=== PATIENT | female | born 1975 | race Asian ===

== ENCOUNTER 2017-02-17 05:11 | Emergency (ER) | payer OTHER, SELFPAY ==
[2017-02-17] MEDS ORDERED: Alum Hydrox/Mag Hydrox/Simeth 30 ML, Lidocaine 2% 15 ML PO ONE ×2 (05:49)
[2017-02-17] MEDS ORDERED: HYDROmorphone 1 MG/ML Syringe IVPUSH ONE (06:31)
[2017-02-17] MEDS ORDERED: Ondansetron 4 MG/2 ML SDV IVPUSH ONE ×2 (06:31→08:48)
--- NOTE | 2017-02-17 06:39 | EDM.PDOC ---
<Amandeep Loyola - Last Filed: 02/17/17 07:48> ED HPI GENERAL MEDICAL PROBLEM - General Chief Complaint: Abdominal Pain Stated Complaint: ABDOMINAL PAIN Time Seen by Provider: 02/17/17 05:48 Source of Information: Reports: Patient History Limitations: Reports: No Limitations - History of Present Illness INITIAL COMMENTS - FREE TEXT/NARRATIVE: This patient complains of epigastric pain. It's been going on since November. It seems to come and go. Initially famotidine helped but does not seem to be helping now. She's tried taking some Tums and generally just takes 2 tablets at once but it doesn't work. She said this pain is worse when she has some stress and she burps a lot. It's a lot worse at night when she is reclining. She has no history of any kind of GI problems. There is no vomiting blood there is no change in her stools such as melena. 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: - Infectious Disease History Infectious Disease History: Reports: Chicken Pox, Measles Social & Family History - Tobacco Use Smoking Status *Q: Current Every Day Smoker Years of Tobacco use: 18 Packs/Tins Daily: 0.3 - Caffeine Use Caffeine Use: Reports: Coffee - Recreational Drug Use Recreational Drug Use: No ED ROS GENERAL - Review of Systems Review Of Systems: See Below Constitutional: Reports: No Symptoms HEENT: Reports: No Symptoms Respiratory: Reports: No Symptoms Cardiovascular: Reports: No Symptoms Endocrine: Reports: No Symptoms GI/Abdominal: Reports: Abdominal Pain : Reports: No Symptoms ED EXAM, GI/ABD - Physical Exam Exam: See Below Exam Limited By: No Limitations General Appearance: Alert, WD/WN, Moderate Distress Eyes: Bilateral: Normal Appearance Throat/Mouth: Normal Inspection Respiratory/Chest: Lungs Clear Cardiovascular: Regular Rate, Rhythm, No Murmur GI/Abdominal Exam: Normal Bowel Sounds, Soft, Tender (There is epigastric tenderness and tenderness directly over the gallbladder with positive Davis sign.) Back Exam: Normal Inspection Extremities: Normal Inspection Neurological: Alert, Oriented Psychiatric: Normal Affect Skin Exam: Warm, Dry Course - Vital Signs Last Recorded V/S: Last Vital Signs Temp 97.2 F 02/17/17 05:33 Pulse 70 02/17/17 08:32 Resp 16 02/17/17 08:32 BP 109/68 02/17/17 08:32 Pulse Ox 97 02/17/17 08:32 - Orders/Labs/Meds Orders: Active Orders 24 hr Category Date Time Status CULTURE BLOOD [BC] Urgent Lab 02/17/17 07:50 Received CULTURE BLOOD [BC] Urgent Lab 02/17/17 08:00 Received Piperacillin/Tazobactam [Zosyn] 3.375 gm Med 02/17/17 08:00 Active Sodium Chloride 0.9% [Normal Saline] 50 ml IV Q6H Blood Culture x2 Reflex Set [OM.PC] Urgent Oth 02/17/17 07:50 Ordered Medication Orders Piperacillin Sod/Tazobactam (Sod 3.375 gm/ Sodium Chloride) 50 mls @ 100 mls/ hr IV Q6H CAROLEE Last Admin: 02/17/17 08:18 Dose: 100 mls/hr Labs: Laboratory Tests 02/17/17 02/17/17 02/17/17 Range/Units 06:09 06:09 06:09 WBC 12.2 H (4.5-11.0) K/uL RBC 4.47 (3.30-5.50) M/uL Hgb 14.3 (12.0-15.0) g/dL Hct 41.1 (36.0-48.0) % MCV 92 (80-98) fL MCH 32 H (27-31) pg MCHC 35 (32-36) % Plt Count 396 (150-400) K/uL Neut % (Auto) 80 H (36-66) % Lymph % (Auto) 13 L (24-44) % [place] % (Auto) 7 H (2-6) % Eos % (Auto) 0 L (2-4) % Baso % (Auto) 0 (0-1) % Sodium 142 (140-148) mmol/L Potassium 3.8 (3.6-5.2) mmol/L Chloride 106 (100-108) mmol/L Carbon Dioxide 22 (21-32) mmol/L Anion Gap 14.5 H (5.0-14.0) mmol/L BUN 10 (7-18) mg/dL Creatinine 0.9 (0.6-1.0) mg/dL Est Cr Clr Drug Dosing 65.06 mL/min Estimated GFR (MDRD) > 60 (>60) Glucose 111 H (74-106) mg/dL Calcium 8.9 (8.5-10.1) mg/dL Total Bilirubin 0.9 (0.2-1.0) mg/dL AST 553 H (15-37) U/L ALT 532 H (12-78) U/L Alkaline Phosphatase 121 H (46-116) U/L Total Protein 7.5 (6.4-8.2) g/dL Albumin 4.1 (3.4-5.0) g/dL Globulin 3.4 (2.3-3.5) g/dL Albumin/Globulin Ratio 1.2 (1.2-2.2) Amylase 36 (25-115) U/L Lipase 201 (73-393) U/L Meds: Medications Generic Name Dose Route Start Last Admin Trade Name Freq PRN Reason Stop Dose Admin Piperacillin Sod/Tazobactam 50 mls @ 100 mls/hr 02/17/17 08:00 02/17/17 08:18 Sod 3.375 gm/ Sodium Chloride IV 100 mls/hr Q6H CAROLEE Administration Discontinued Medications Generic Name Dose Route Start Last Admin Trade Name Freq PRN Reason Stop Dose Admin Al Hydroxide/Mg Hydroxide 30 0 ml 02/17/17 05:49 02/17/17 05:56 ml/ Lidocaine HCl 15 ml PO 02/17/17 05:50 30 ml ONETIME ONE Administration Hydromorphone HCl 1 mg 02/17/17 06:31 02/17/17 06:40 Dilaudid IVPUSH 02/17/17 06:32 1 mg ONETIME ONE Administration Metronidazole 500 mg/ Premix 100 mls @ 100 mls/hr 02/17/17 07:49 02/17/17 08: 47 IV 02/17/17 08:48 100 mls/hr ONETIME ONE Administration Ketorolac Tromethamine 30 mg 02/17/17 06:47 02/17/17 06:56 Toradol IVPUSH 02/17/17 06:48 30 mg ONETIME ONE Administration Ondansetron HCl 4 mg 02/17/17 06:31 02/17/17 06:39 Zofran IVPUSH 02/17/17 06:32 4 mg ONETIME ONE Administration Ondansetron HCl 4 mg 02/17/17 08:48 Zofran IVPUSH 02/17/17 08:49 ONETIME ONE Prochlorperazine Edisylate 5 mg 02/17/17 08:50 02/17/17 08:56 Compazine IVPUSH 02/17/17 08:51 5 mg ONETIME ONE Administration - Re-Assessments/Exams Free Text/Narrative Re-Assessment/Exam: 02/17/17 06:38 The patient was given a GI cocktail of 30 mL Maalox +15 of lidocaine. She said this did not help at all. An IV was then established she was given Dilaudid 1 mg and Zofran 4 mg IV. Her chemistries are still pending and when those are ready will make a decision about imaging. 02/17/17 07:13 Liver functions transaminases and alkaline phosphatase are elevated. Ultrasound is pending. She received initially Toradol 30 mg IV. 02/17/17 07:[address] Baker Hospitalist at [facility] in [place]. He accepted the patient but requested we start IV Zosyn and Flagyl and do 2 sets blood cultures. Care turned over to Dr Officer at this time. Departure - Departure Disposition: DC/Tfer to [facility] 02 Clinical Impression: Common bile duct dilatation - Discharge Information Referrals: Dayana Miner CNM [Primary Care Provider] - Forms: ED Department Discharge - My Orders Last 24 Hours: My Active Orders 02/17/17 07:50 CULTURE BLOOD [BC] Urgent Blood Culture x2 Reflex Set [OM.PC] Urgent 02/17/17 08:00 CULTURE BLOOD [BC] Urgent Piperacillin/Tazobactam [Zosyn] 3.375 gm Sodium Chloride 0.9% [Normal Saline] 50 ml IV Q6H - Assessment/Plan Last 24 Hours: My Active Orders 02/17/17 07:50 CULTURE BLOOD [BC] Urgent Blood Culture x2 Reflex Set [OM.PC] Urgent 02/17/17 08:00 CULTURE BLOOD [BC] Urgent Piperacillin/Tazobactam [Zosyn] 3.375 gm Sodium Chloride 0.9% [Normal Saline] 50 ml IV Q6H <OfficerTorres - Last Filed: 02/17/17 09:55> Departure - Departure Time of Disposition: 09:55 Condition: Good - Assessment/Plan Plan: Assessment Acuity = acute Site and laterality = right upper quadrant gallbladder pain complicated patient with known history of gastroesophageal reflux disease Etiology = suspicious for gallbladder duct stone Manifestations = nausea Location of injury = Home Lab values = WBC elevated at 12.2 consistent with leukocytosis, AST elevated at 553 ALTs elevated at 532 consistent with elevated liver enzymes ultrasound shows common bile duct dilated to 6 mm a thickened gallbladder wall at the upper limits of normal 2 gallstones present official read radiology is pending Plan Dr. Baker hospitalist neon sign maker at [facility], kindly accepted the patient in transport she will be transported via private vehicle plan for direct admission she was given 3.375 mg of Zosyn, 500 mg of Flagyl, blood cultures were drawn prior to initiation of antibiotics
[2017-02-17] MEDS ORDERED: Ketorolac 30 MG/ML SDV IVPUSH ONE (06:47)
[2017-02-17] MEDS ORDERED: metroNIDAZOLE/Normal Saline 500 MG in Premix Bag 1 BAG IV ONE (07:49)
[2017-02-17] MEDS ORDERED: Piperacillin/Tazobactam 3.375 GM in Sodium Chloride 0.9% 50 ML IV SCH (08:00)
[2017-02-17 08:33] VITALS: BP 109/68
[2017-02-17] MEDS ORDERED: Prochlorperazine 10 MG/2 ML SDV IVPUSH ONE (08:50)
--- NOTE | 2017-02-17 09:07 | US ---
Abdomen Ltd INDICATION: RUQ pain, increased LFT's COMPARISON: None FINDINGS: 3.5 cm cyst seen in the liver. Liver otherwise unremarkable. Small gallstones. No gallbladder wall thickening. No sonographic Davis sign though ultrasound note i ndicates patient was given pain meds. Common bile duct upper limits of normal at 7 mm. Abdominal aorta and inferior vena cava are unremarkable where visualized. Visualized portions of the pancreas are unremarkable. Right kidney unremarkable. No calculi or hydronephrosis. No ascites seen in the right upper quadrant. IMPRESSION: 1. Small gallstones. 2. 3.5 cm hepatic cyst.
== END 2017-02-17 10:08 ==
LOC: JP.ED 05:11
DX: K83.8 Other specified diseases of biliary tract (principal); K21.9 Gastro-esophageal reflux disease without esophagitis; F17.210 Nicotine dependence, cigarettes, uncomplicated; Z79.899 Other long term (current) drug therapy
CPT/HCPCS: 36415; 76705; 80053; 82150; 83690; 85025; 87040; 96365; 96367; 96375; 96376; 99285; A9270; J0780; J1170; J1885; J2405; J2543; J7050

== ENCOUNTER 2019-02-18 01:59 | Emergency (ER) | payer SELFPAY ==
[2019-02-18] MEDS ORDERED: Sodium Chloride 0.9% 10 ML Syringe FLUSH PRN ×2 (02:35)
--- NOTE | 2019-02-18 02:43 | EDM.PDOCBH ---
<OfficerTorres - Last Filed: 02/18/19 02:39> ED HPI GENERAL MEDICAL PROBLEM - General Chief Complaint: Behavioral/Psych Stated Complaint: MEDICAL VIA [facility]TH Time Seen by Provider: 02/18/19 02:34 Source of Information: Reports: Patient, EMS, RN Notes Reviewed History Limitations: Reports: No Limitations - History of Present Illness INITIAL COMMENTS - FREE TEXT/NARRATIVE: 43-year-old female presents emergency department today following an intentional overdose of medications approximately 12:30 this morning she took 4 tramadol 50 mg for total of 200 mg, 4 hydrocodone 5/325 for total of 20 mg hydrocodone with 1300 mg acetaminophen and 10 mg Flexeril. This was intended she wanted to harm herself because she is currently fighting with her Shoulder Pain Score (Numeric/FACES): 0 - Related Data Allergies Allergy/AdvReac Type Severity Reaction Status Date / Time No Known Allergies Allergy Verified 02/18/19 02:09 Home Meds: Home Meds Famotidine [Pepcid] 20 mg PO DAILY 12/17/18 [History] Ibuprofen [Advil] 200 mg PO DAILY 12/17/18 [History] Naproxen Sodium [Aleve] 220 mg PO DAILY 12/17/18 [History] Cyclobenzaprine [Flexeril] 10 mg PO QID PRN #28 tablet 12/25/18 [Rx] Hydrocodone/Acetaminophen [[place] 5-325 Tablet] 1 each PO Q6HR PRN #28 tablet 01/07 [Rx] traMADol [Ultram] 50 mg PO Q6H PRN 02/18/19 [History] Past Medical History Gastrointestinal History: Reports: GERD 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 C-5,6 spine injury - Infectious Disease History Infectious Disease History: Reports: Chicken Pox, Measles - Past Surgical History GI Surgical History: Reports: Cholecystectomy Social & Family History - Tobacco Use Smoking Status *Q: Current Every Day Smoker Years of Tobacco use: 20 Packs/Tins Daily: 0.5 - Caffeine Use Caffeine Use: Reports: Coffee, Soda - Recreational Drug Use Recreational Drug Use: No ED ROS GENERAL - Review of Systems Review Of Systems: See Below Constitutional: Reports: No Symptoms HEENT: Reports: No Symptoms Respiratory: Reports: No Symptoms Cardiovascular: Reports: No Symptoms GI/Abdominal: Reports: No Symptoms : Reports: No Symptoms Musculoskeletal: Reports: Muscle Pain Skin: Reports: No Symptoms Neurological: Reports: No Symptoms Psychiatric: Reports: Suicidal Ideation ED EXAM, BEHAVIORAL HEALTH - Physical Exam Exam: See Below Text/Narrative:: General: Female, not in any distress, alert and oriented x3 HEENT: head is atraumatic normocephalic, eyes pupils equal round reactive to light, sclera clear no conjunctivitis appreciated. Ears tympanic membranes clear and lara landmarks and light reflex are present bilaterally canals are clear. Nose no septal deviation, nares are clear, no blood present. Mouth mucosa is moist and pink no erythema or exudate noted in soft palate, tongue is midline uvula is midline, dentition is intact. Neck: Supple no thyromegaly no tracheal deviation. Nodes: Cervical nodes subclavicular nodes nontender no palpable lymphadenopathy noted. Lungs: clear to auscultation bilaterally with symmetrical respirations, no adventitious noise appreciated. CV: Regular rate and rhythm S1 and S2 appreciated no murmurs rubs or gallops noted. Abdomen: Soft, nontender, no palpable masses or organomegaly appreciated, no distention no guarding bowel sounds are present, . Neuro: GCS 15 Skin: Warm and dry, intact Extremities: No lower extremity edema appreciated, Orientated to person place and time, appropriately dressed, well groomed, memory to recent and remote events intact, good attention and concentration, speech is of adequate rate tone and volume, good fund of knowledge, language is appropriate, Mood and affect are euthymic, no pressured thoughts, positive suicidal ideation, denies homicidal ideation, no hallucinations visual or auditory, poor judgment, poor insight COURSE, BEHAVIORAL HEALTH COMP - Course Vital Signs: Last Vital Signs Temp 37.2 C 02/18/19 02:05 Pulse 75 02/18/19 08:00 Resp 15 02/18/19 08:00 BP 113/73 02/18/19 08:00 Pulse Ox 96 02/18/19 08:00 Orders, Labs, Meds: Active Orders 24 hr Category Date Time Status Peripheral IV Care [RC] . DIRECTED Care 02/18/19 02:36 Active Sodium Chloride 0.9% [Saline Flush] Med 02/18/19 02:35 Active 10 ml FLUSH ASDIRECTED PRN Sodium Chloride 0.9% [Saline Flush] Med 02/18/19 02:35 Active 10 ml FLUSH ASDIRECTED PRN Peripheral IV Insertion Adult [OM.PC] Urgent Oth 02/18/19 02:35 Ordered Medication Orders Sodium Chloride (Saline Flush) 10 ml FLUSH ASDIRECTED PRN PRN Reason: Keep Vein Open Last Admin: 02/18/19 02:52 Dose: 10 ml Sodium Chloride (Saline Flush) 10 ml FLUSH ASDIRECTED PRN PRN Reason: Keep Vein Open Laboratory Tests 02/18/19 02/18/19 02/18/19 Range/Units 02:15 02:15 02:15 WBC 15.9 H (4.5-11.0) K/uL RBC 4.83 (3.30-5.50) M/uL Hgb 14.9 (12.0-15.0) g/dL Hct 44.5 (36.0-48.0) % MCV 92 (80-98) fL MCH 31 (27-31) pg MCHC 34 (32-36) % Plt Count 486 H (150-400) K/uL Neut % (Auto) 67 H (36-66) % Lymph % (Auto) 22 L (24-44) % [place] % (Auto) 10 H (2-6) % Eos % (Auto) 1 L (2-4) % Baso % (Auto) 0 (0-1) % Sodium 141 (140-148) mmol/L Potassium 3.8 (3.6-5.2) mmol/L Chloride 104 (100-108) mmol/L Carbon Dioxide 24 (21-32) mmol/L Anion Gap 12.6 (5.0-14.0) mmol/L BUN 10 (7-18) mg/dL Creatinine 0.9 (0.6-1.0) mg/dL Est Cr Clr Drug Dosing 63.75 mL/min Estimated GFR (MDRD) > 60 (>60) Glucose 105 (74-106) mg/dL Lactic Acid (0.4-2.0) mmol/L Calcium 9.1 (8.5-10.1) mg/dL Total Bilirubin 0.3 D (0.2-1.0) mg/dL AST 16 D (15-37) U/L ALT 21 D (12-78) U/L Alkaline Phosphatase 78 (46-116) U/L Creatine Kinase (26-192) U/L Total Protein 8.3 H (6.4-8.2) g/dL Albumin 4.1 (3.4-5.0) g/dL Globulin 4.2 H (2.3-3.5) g/dL Albumin/Globulin Ratio 1.0 L (1.2-2.2) HCG, Qual Negative Urine Color (YELLOW) Urine Appearance (CLEAR) Urine pH (5.0-8.0) Ur Specific Stevenson (1.008-1.030) Urine Protein (NEGATIVE) mg/dL Urine Glucose (UA) (NEGATIVE) mg/dL Urine Ketones (NEGATIVE) mg/dL Urine Occult Blood (NEGATIVE) Urine Nitrite (NEGATIVE) Urine Bilirubin (NEGATIVE) Urine Urobilinogen (0.2-1.0) EU/dL Ur Leukocyte Esterase (NEGATIVE) Urine RBC (0-5) Urine WBC (0-5) Ur Epithelial Cells Amorphous Sediment Urine Bacteria Urine Mucus Salicylates (2.0-20.0) mg/dL Urine Opiates Screen (NEGATIVE) Ur Oxycodone Screen (NEGATIVE) Urine Methadone Screen (NEGATIVE) Ur Propoxyphene Screen (NEGATIVE) Acetaminophen (10.0-30.0) ug/mL Ur Barbiturates Screen (NEGATIVE) Ur Tricyclics Screen (NEGATIVE) Ur Phencyclidine Scrn (NEGATIVE) Ur Amphetamine Screen (NEGATIVE) U Methamphetamines Scrn (NEGATIVE) Urine MDMA Screen (NEGATIVE) U Benzodiazepines Scrn (NEGATIVE) U Cocaine Metab Screen (NEGATIVE) U Marijuana (THC) Screen (NEGATIVE) Ethyl Alcohol mg/dL 02/18/19 02/18/19 02/18/19 Range/Units 02:15 02:15 02:15 WBC (4.5-11.0) K/uL RBC (3.30-5.50) M/uL Hgb (12.0-15.0) g/dL Hct (36.0-48.0) % MCV (80-98) fL MCH (27-31) pg MCHC (32-36) % Plt Count (150-400) K/uL Neut % (Auto) (36-66) % Lymph % (Auto) (24-44) % [place] % (Auto) (2-6) % Eos % (Auto) (2-4) % Baso % (Auto) (0-1) % Sodium (140-148) mmol/L Potassium (3.6-5.2) mmol/L Chloride (100-108) mmol/L Carbon Dioxide (21-32) mmol/L Anion Gap (5.0-14.0) mmol/L BUN (7-18) mg/dL Creatinine (0.6-1.0) mg/dL Est Cr Clr Drug Dosing mL/min Estimated GFR (MDRD) (>60) Glucose (74-106) mg/dL Lactic Acid (0.4-2.0) mmol/L Calcium (8.5-10.1) mg/dL Total Bilirubin (0.2-1.0) mg/dL AST (15-37) U/L ALT (12-78) U/L Alkaline Phosphatase (46-116) U/L Creatine Kinase (26-192) U/L Total Protein (6.4-8.2) g/dL Albumin (3.4-5.0) g/dL Globulin (2.3-3.5) g/dL Albumin/Globulin Ratio (1.2-2.2) HCG, Qual Urine Color (YELLOW) Urine Appearance (CLEAR) Urine pH (5.0-8.0) Ur Specific Stevenson (1.008-1.030) Urine Protein (NEGATIVE) mg/dL Urine Glucose (UA) (NEGATIVE) mg/dL Urine Ketones (NEGATIVE) mg/dL Urine Occult Blood (NEGATIVE) Urine Nitrite (NEGATIVE) Urine Bilirubin (NEGATIVE) Urine Urobilinogen (0.2-1.0) EU/dL Ur Leukocyte Esterase (NEGATIVE) Urine RBC (0-5) Urine WBC (0-5) Ur Epithelial Cells Amorphous Sediment Urine Bacteria Urine Mucus Salicylates 4.1 (2.0-20.0) mg/dL Urine Opiates Screen (NEGATIVE) Ur Oxycodone Screen (NEGATIVE) Urine Methadone Screen (NEGATIVE) Ur Propoxyphene Screen (NEGATIVE) Acetaminophen 0.0 L (10.0-30.0) ug/mL Ur Barbiturates Screen (NEGATIVE) Ur Tricyclics Screen (NEGATIVE) Ur Phencyclidine Scrn (NEGATIVE) Ur Amphetamine Screen (NEGATIVE) U Methamphetamines Scrn (NEGATIVE) Urine MDMA Screen (NEGATIVE) U Benzodiazepines Scrn (NEGATIVE) U Cocaine Metab Screen (NEGATIVE) U Marijuana (THC) Screen (NEGATIVE) Ethyl Alcohol < 3 mg/dL 02/18/19 02/18/19 02/18/19 Range/Units 02:15 02:15 02:45 WBC (4.5-11.0) K/uL RBC (3.30-5.50) M/uL Hgb (12.0-15.0) g/dL Hct (36.0-48.0) % MCV (80-98) fL MCH (27-31) pg MCHC (32-36) % Plt Count (150-400) K/uL Neut % (Auto) (36-66) % Lymph % (Auto) (24-44) % [place] % (Auto) (2-6) % Eos % (Auto) (2-4) % Baso % (Auto) (0-1) % Sodium (140-148) mmol/L Potassium (3.6-5.2) mmol/L Chloride (100-108) mmol/L Carbon Dioxide (21-32) mmol/L Anion Gap (5.0-14.0) mmol/L BUN (7-18) mg/dL Creatinine (0.6-1.0) mg/dL Est Cr Clr Drug Dosing mL/min Estimated GFR (MDRD) (>60) Glucose (74-106) mg/dL Lactic Acid 2.1 H (0.4-2.0) mmol/L Calcium (8.5-10.1) mg/dL Total Bilirubin (0.2-1.0) mg/dL AST (15-37) U/L ALT (12-78) U/L Alkaline Phosphatase (46-116) U/L Creatine Kinase 136 (26-192) U/L Total Protein (6.4-8.2) g/dL Albumin (3.4-5.0) g/dL Globulin (2.3-3.5) g/dL Albumin/Globulin Ratio (1.2-2.2) HCG, Qual Urine Color (YELLOW) Urine Appearance (CLEAR) Urine pH (5.0-8.0) Ur Specific Stevenson (1.008-1.030) Urine Protein (NEGATIVE) mg/dL Urine Glucose (UA) (NEGATIVE) mg/dL Urine Ketones (NEGATIVE) mg/dL Urine Occult Blood (NEGATIVE) Urine Nitrite (NEGATIVE) Urine Bilirubin (NEGATIVE) Urine Urobilinogen (0.2-1.0) EU/dL Ur Leukocyte Esterase (NEGATIVE) Urine RBC (0-5) Urine WBC (0-5) Ur Epithelial Cells Amorphous Sediment Urine Bacteria Urine Mucus Salicylates (2.0-20.0) mg/dL Urine Opiates Screen Presumptive positive H (NEGATIVE) Ur Oxycodone Screen Presumptive positive H (NEGATIVE) Urine Methadone Screen Negative (NEGATIVE) Ur Propoxyphene Screen Negative (NEGATIVE) Acetaminophen (10.0-30.0) ug/mL Ur Barbiturates Screen Negative (NEGATIVE) Ur Tricyclics Screen Presumptive positive H (NEGATIVE) Ur Phencyclidine Scrn Negative (NEGATIVE) Ur Amphetamine Screen Negative (NEGATIVE) U Methamphetamines Scrn Negative (NEGATIVE) Urine MDMA Screen Negative (NEGATIVE) U Benzodiazepines Scrn Negative (NEGATIVE) U Cocaine Metab Screen Negative (NEGATIVE) U Marijuana (THC) Screen Negative (NEGATIVE) Ethyl Alcohol mg/dL 02/18/19 02/18/19 02/18/19 Range/Units 02:51 04:25 06:40 WBC (4.5-11.0) K/uL RBC (3.30-5.50) M/uL Hgb (12.0-15.0) g/dL Hct (36.0-48.0) % MCV (80-98) fL MCH (27-31) pg MCHC (32-36) % Plt Count (150-400) K/uL Neut % (Auto) (36-66) % Lymph % (Auto) (24-44) % [place] % (Auto) (2-6) % Eos % (Auto) (2-4) % Baso % (Auto) (0-1) % Sodium 139 L 139 L (140-148) mmol/L Potassium 3.9 4.1 (3.6-5.2) mmol/L Chloride 105 105 (100-108) mmol/L Carbon Dioxide 23 24 (21-32) mmol/L Anion Gap 14.9 H 14.1 H (5.0-14.0) mmol/L BUN 11 11 (7-18) mg/dL Creatinine 0.8 0.9 (0.6-1.0) mg/dL Est Cr Clr Drug Dosing 71.71 63.75 mL/min Estimated GFR (MDRD) > 60 > 60 (>60) Glucose 109 H 104 (74-106) mg/dL Lactic Acid (0.4-2.0) mmol/L Calcium 8.4 L 8.5 (8.5-10.1) mg/dL Total Bilirubin 0.3 0.3 (0.2-1.0) mg/dL AST 14 L 12 L (15-37) U/L ALT 19 18 (12-78) U/L Alkaline Phosphatase 68 69 (46-116) U/L Creatine Kinase (26-192) U/L Total Protein 7.1 7.1 (6.4-8.2) g/dL Albumin 3.5 3.4 (3.4-5.0) g/dL Globulin 3.6 H 3.7 H (2.3-3.5) g/dL Albumin/Globulin Ratio 1.0 L 0.9 L (1.2-2.2) HCG, Qual Urine Color Yellow (YELLOW) Urine Appearance Slightly cloudy A (CLEAR) Urine pH 5.5 (5.0-8.0) Ur Specific Stevenson 1.030 (1.008-1.030) Urine Protein Negative (NEGATIVE) mg/dL Urine Glucose (UA) Normal (NEGATIVE) mg/dL Urine Ketones Negative (NEGATIVE) mg/dL Urine Occult Blood Negative (NEGATIVE) Urine Nitrite Negative (NEGATIVE) Urine Bilirubin Negative (NEGATIVE) Urine Urobilinogen 0.2 (0.2-1.0) EU/dL Ur Leukocyte Esterase Negative (NEGATIVE) Urine RBC 0-5 (0-5) Urine WBC 0-5 (0-5) Ur Epithelial Cells Moderate Amorphous Sediment Not seen Urine Bacteria Moderate Urine Mucus Moderate Salicylates (2.0-20.0) mg/dL Urine Opiates Screen (NEGATIVE) Ur Oxycodone Screen (NEGATIVE) Urine Methadone Screen (NEGATIVE) Ur Propoxyphene Screen (NEGATIVE) Acetaminophen 3.3 L 0.2 L (10.0-30.0) ug/mL Ur Barbiturates Screen (NEGATIVE) Ur Tricyclics Screen (NEGATIVE) Ur Phencyclidine Scrn (NEGATIVE) Ur Amphetamine Screen (NEGATIVE) U Methamphetamines Scrn (NEGATIVE) Urine MDMA Screen (NEGATIVE) U Benzodiazepines Scrn (NEGATIVE) U Cocaine Metab Screen (NEGATIVE) U Marijuana (THC) Screen (NEGATIVE) Ethyl Alcohol mg/dL Medications Generic Name Dose Route Start Last Admin Trade Name Freq PRN Reason Stop Dose Admin Sodium Chloride 10 ml 02/18/19 02:35 02/18/19 02:52 Saline Flush FLUSH 10 ml ASDIRECTED PRN Administration Keep Vein Open Sodium Chloride 10 ml 02/18/19 02:35 Saline Flush FLUSH ASDIRECTED PRN Keep Vein Open Departure - Departure Disposition: Home, Self-Care 01 Clinical Impression: Situational depression Suicide gesture Qualifiers: Encounter type: initial encounter Qualified Code(s): X83.8XXA - Intentional self-harm by other specified means, initial encounter - Discharge Information Referrals: PCP,None [Primary Care Provider] - Forms: ED Department Discharge Additional Instructions: Return as needed. Continue any current medications. Follow through with plan as outlined by today's Crisis consultation. <Shaan German G - Last Filed: 02/18/19 11:01> COURSE, BEHAVIORAL HEALTH COMP - Course Re-Assessment/Re-Exam Time: 10:59 Discharge vs Psych Eval/Treatment:: 02/18/19 10:59 Crisis met with patient, feels safe to discharge with a safety plan. Departure - Departure Time of Disposition: 11:05 Condition: Fair - Discharge Information *PRESCRIPTION DRUG MONITORING PROGRAM REVIEWED*: No *COPY OF PRESCRIPTION DRUG MONITORING REPORT IN PATIENT GIOVANNA: No
[2019-02-18 04:40] LABS: ACETAMINOPHEN 3.3 ug/mL (10.0-30.0)
[2019-02-18 07:08] LABS: ACETAMINOPHEN 0.2 ug/mL (10.0-30.0)
[2019-02-18 08:49] VITALS: BP 113/73; PULSE 75
== END 2019-02-18 11:15 | disposition home or self-care (01) ==
LOC: JP.ED 01:59
DX: T40.4X2A Poisoning by other synthetic narcotics, intentional self-harm, initial encounter (principal); T40.2X2A Poisoning by other opioids, intentional self-harm, initial encounter; T39.1X2A Poisoning by 4-Aminophenol derivatives, intentional self-harm, initial encounter; T48.1X2A Poisoning by skeletal muscle relaxants [neuromuscular blocking agents], intentional self-harm, initial encounter; F32.9 Major depressive disorder, single episode, unspecified; K21.9 Gastro-esophageal reflux disease without esophagitis; F17.210 Nicotine dependence, cigarettes, uncomplicated; Z79.899 Other long term (current) drug therapy
CPT/HCPCS: 36415; 80053; 80305-QW; 81001; 82550; 83605; 84703; 85025; 99285; G0480

== ENCOUNTER 2019-04-16 13:08 | Emergency (ER) | payer OTHER ==
[2019-04-16 13:22] VITALS: BP 139/71; PULSE 119
--- NOTE | 2019-04-16 14:04 | EDM.PDOC ---
ED HPI GENERAL MEDICAL PROBLEM - General Chief Complaint: Back Pain or Injury Stated Complaint: BACK PAIN/INJURY Time Seen by Provider: 04/16/19 13:40 Source of Information: Reports: Patient History Limitations: Reports: No Limitations - History of Present Illness INITIAL COMMENTS - FREE TEXT/NARRATIVE: 43-year-old female who is currently being treated for right C6 cervical radiculopathy, has recently decreased her work restrictions but is still not supposed to be doing any lifting. 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 She had no symptoms or pain initially, but when she was sitting later it started to hurt and it's been hurting for the last 3 days. Some radiation of pain into the right buttock, some discomfort with ambulation but the pain is mostly localized to the right SI and lower paralumbar area. No specific trauma such as falling. Onset: Gradual Duration: Day(s): (4 days) Location: Reports: Back Worsens with: Reports: Other (Returning to the right, bearing weight and ambulating), Movement Associated Symptoms: Denies: Confusion, Fever/Chills, Malaise, Weakness Lower Back Pain Score (Numeric/FACES): 7 - Related Data Allergies Allergy/AdvReac Type Severity Reaction Status Date / Time No Known Allergies Allergy Verified 04/16/19 13:38 Home Meds: Home Meds Ibuprofen [Advil] 800 mg PO Q6H PRN 12/17/18 [History] Naproxen Sodium [Aleve] 220 mg PO Q12H PRN 12/17/18 [History] Cyclobenzaprine [Flexeril] 10 mg PO QID PRN #28 tablet 12/25/18 [Rx] buPROPion HCl [Bupropion Xl] 150 mg PO DAILY 04/16/19 [History] medroxyPROGESTERone Acetate [Depo-Provera] 150 mg IM .[id number] 04/16/19 [History ] Past Medical History Gastrointestinal History: Reports: [employer] History: Reports: Musculoskeletal History: Reports: Other (See Below) Other Musculoskeletal History: R shoulder injury 12/01/18. C-5,6 spine injury Endocrine/Metabolic History: Reports: Other (See Below) Other Endocrine/Metabolic History: thyroid biopsy scheduled - Infectious Disease History Infectious Disease History: Reports: Chicken Pox, Measles, Mumps - Past Surgical History GI Surgical History: Reports: Cholecystectomy Social & Family History - Tobacco Use Smoking Status *Q: Current Every Day Smoker Years of Tobacco use: 20 Packs/Tins Daily: 0.2 Used Tobacco, but Quit: No Second Hand Smoke Exposure: Yes - Caffeine Use Caffeine Use: Reports: Coffee, Tea - Alcohol Use Days Per Week of Alcohol Use: 0 - Recreational Drug Use Recreational Drug Use: No ED ROS GENERAL - Review of Systems Review Of Systems: See Below Constitutional: Denies: Fever, Chills Respiratory: Denies: Shortness of Breath Cardiovascular: Denies: Chest Pain GI/Abdominal: Denies: Abdominal Pain, Nausea, Vomiting Musculoskeletal: Reports: Shoulder Pain, Arm Pain (Right-sided), Back Pain Neurological: Denies: Paresthesia, Weakness ED EXAM,LOWER BACK PAIN/INJURY - Physical Exam Exam: See Below Exam Limited By: No Limitations General Appearance: Alert, No Apparent Distress Head: Atraumatic Respiratory/Chest: No Respiratory Distress Cardiovascular: Normal Peripheral Pulses Back Exam: Paraspinal Tenderness (Right-sided, L3-S1). No: CVA Tenderness (R), CVA Tenderness (L), Vertebral Tenderness Extremities: Other (No significant pain with internal or external rotation of the right hip, no straight leg raising radiculopathy. Dorsi and plantar flexion of both feet are basically symmetric.) Course - Vital Signs Last Recorded V/S: Last Vital Signs Temp 98.8 F 04/16/19 13:33 Pulse 119 H 04/16/19 13:33 Resp 16 04/16/19 13:33 BP 139/71 04/16/19 13:33 Pulse Ox 97 04/16/19 13:33 - Orders/Labs/Meds Meds: Medications Discontinued Medications Generic Name Dose Route Start Last Admin Trade Name Freq PRN Reason Stop Dose Admin Ketorolac Tromethamine 60 mg 04/16/19 14:13 04/16/19 14:24 Toradol IM 04/16/19 14:14 60 mg ONETIME ONE Administration - Re-Assessments/Exams Free Text/Narrative Re-Assessment/Exam: 04/16/19 14:06 Because this is a work related injury and she is likely following with orthopedics a lumbar spine x-ray was obtained. 04/16/19 14:17 Some slight lack of lumbar curvature but otherwise normal. Patient was given 60 mg of IM Toradol and encouraged to try to increase activity as tolerated and recheck next week if not improving satisfactorily. Departure - Departure Time of Disposition: 14:34 Disposition: Home, Self-Care 01 Clinical Impression: Low back strain Qualifiers: Encounter type: initial encounter Qualified Code(s): S39.012A - Strain of muscle, fascia and tendon of lower back, initial encounter - Discharge Information Instructions: Low Back Strain Referrals: Dayana Miner CNM [Primary Care Provider] - Forms: ED Department Discharge Care Plan Goals: Try to increase activity as tolerated, and consider rechecking next week if not improving satisfactorily. Return sooner if worsening such as incontinence, numbness or significant weakness in your right leg, or other concerns.
[2019-04-16] MEDS ORDERED: Ketorolac 60 MG/2 ML SDV IM ONE (14:13)
--- NOTE | 2019-04-16 14:20 | CRLCR ---
INDICATION: Low back pain TECHNIQUE: Lumbar spine 3 view. COMPARISON: None. FINDINGS: Bones: Alignment is normal. No fractures or significant bone lesions. Joints: Mild multilevel degenerative facet changes. Minimal multilevel degenerative disc changes. Soft tissues: Surgical clips in the right upper quadrant. IMPRESSION: No acute abnormality. Mild degenerative facet and disc changes. Dictated by Arlene Champion MD @ Apr 16 2019 2:18PM Signed by Dr. Arlene Champion @ Apr 16 2019 2:18PM
== END 2019-04-16 14:34 | disposition home or self-care (01) ==
LOC: JP.ED 13:08
DX: S39.012A Strain of muscle, fascia and tendon of lower back, initial encounter (principal); F17.210 Nicotine dependence, cigarettes, uncomplicated; X50.1XXA Overexertion from prolonged static or awkward postures, initial encounter; Y93.89 Activity, other specified; Y92.89 Other specified places as the place of occurrence of the external cause; Y99.0 Civilian activity done for income or pay
CPT/HCPCS: 72100; 96372; 99283; J1885

== ENCOUNTER 2022-03-11 12:28 | Inpatient (IN) | payer SELFPAY ==
[2022-03-11] MEDS ORDERED: Sodium Chloride 0.9% 10 ML Syringe FLUSH PRN (12:45)
[2022-03-11] MEDS ORDERED: Lactated Ringers 1,000 ML IV SCH ×2 (13:00→20:15)
[2022-03-11] MEDS ORDERED: Sodium Chloride 0.9% 1,000 ML IV SCH (13:15)
[2022-03-11] MEDS ORDERED: Piperacillin/Tazobactam 3.375 GM in Sodium Chloride 0.9% 50 ML IV ONE (13:20)
[2022-03-11] MEDS ORDERED: Morphine 2 MG/ML SYRINGE IVPUSH PRN (13:20)
[2022-03-11] MEDS ORDERED: Bupivacaine 0.5%/EPINEPHrine 1:200,000 50 ML MDV ONE ×2 (13:54→14:15)
[2022-03-11] MEDS ORDERED: Indocyanine Green 25 MG SDV ONE (13:55)
[2022-03-11] MEDS ORDERED: Dexamethasone 4 MG/ML SDV ONE (14:06)
[2022-03-11] MEDS ORDERED: Glycopyrrolate 0.2 MG/ML 5 ML MDV ONE (14:06)
[2022-03-11] MEDS ORDERED: Neostigmine Methylsulfate 1 MG/ML 5 ML Syringe ONE (14:06)
[2022-03-11] MEDS ORDERED: Rocuronium 50 MG/5 ML Vial ONE (14:06)
[2022-03-11] MEDS ORDERED: Succinylcholine 200 MG/10 ML MDV ONE (14:06)
[2022-03-11] MEDS ORDERED: Ondansetron 4 MG/2 ML SDV ONE (14:06)
[2022-03-11] MEDS ORDERED: Propofol 200 MG/20 ML SDV ONE (14:06)
[2022-03-11] MEDS ORDERED: fentaNYL 250 MCG/5 ML SDV ONE (14:08)
[2022-03-11] MEDS ORDERED: fentaNYL 100 MCG/2 ML SDV ONE (14:29)
[2022-03-11] MEDS ORDERED: Sugammadex Sodium 200 MG/2 ML VIAL ONE (15:00)
[2022-03-11] MEDS: Acetaminophen 500 MG Tab PO SCH (20:44)
[2022-03-11] MEDS: oxyCODONE 5 MG Tab PO PRN (20:44)
[2022-03-11] MEDS: HYDROmorphone 0.5 MG/0.5 ML Syringe IVPUSH PRN (22:37)
[2022-03-12] MEDS: oxyCODONE 5 MG Tab PO PRN ×4 (02:48→22:27)
[2022-03-12] MEDS: Acetaminophen 500 MG Tab PO SCH ×3 (03:11→20:01)
[2022-03-12] MEDS: Piperacillin/Tazobactam/Dext 3.375 GM in Premix Bag 1 BAG IV SCH ×3 (10:28→21:34)
[2022-03-12] MEDS: Tamsulosin 0.4 MG Cap.ER PO SCH (10:28)
[2022-03-12] MEDS: Enoxaparin 40 MG/0.4 ML Syringe SUBCUT SCH (10:28)
[2022-03-13] MEDS: oxyCODONE 5 MG Tab PO PRN ×4 (02:21→16:37)
[2022-03-13] MEDS: Acetaminophen 500 MG Tab PO SCH ×3 (04:13→19:41)
[2022-03-13] MEDS: Piperacillin/Tazobactam/Dext 3.375 GM in Premix Bag 1 BAG IV SCH ×4 (04:13→21:00)
[2022-03-13] MEDS ORDERED: Benzocaine/Cetylpyridinium/Menthol Lozenge MUCMEM PRN ×2 (07:13→07:47)
[2022-03-13] MEDS: Ondansetron 4 MG/2 ML SDV IVPUSH PRN (08:39)
[2022-03-13] MEDS ORDERED: Potassium Chloride 20 MEQ Tab.ER PO ONE (09:00)
[2022-03-13] MEDS: Enoxaparin 40 MG/0.4 ML Syringe SUBCUT SCH (10:04)
[2022-03-13] MEDS: Tamsulosin 0.4 MG Cap.ER PO SCH (10:04)
[2022-03-14] MEDS: oxyCODONE 5 MG Tab PO PRN ×3 (03:24→16:18)
[2022-03-14] MEDS: Piperacillin/Tazobactam/Dext 3.375 GM in Premix Bag 1 BAG IV SCH ×4 (03:25→21:27)
[2022-03-14] MEDS: Acetaminophen 500 MG Tab PO SCH ×4 (04:41→19:42)
[2022-03-14] MEDS ORDERED: Iopamidol 612 MG/ML 500 ML Multipack Bottle IV ONE (08:49)
[2022-03-14] MEDS ORDERED: Sodium Chloride 0.9% 50 ML IV SCH (09:00)
[2022-03-14] MEDS: Tamsulosin 0.4 MG Cap.ER PO SCH (09:25)
[2022-03-14] MEDS: Enoxaparin 40 MG/0.4 ML Syringe SUBCUT SCH (09:25)
[2022-03-15] MEDS: oxyCODONE 5 MG Tab PO PRN ×2 (02:51→09:15)
[2022-03-15] MEDS: Piperacillin/Tazobactam/Dext 3.375 GM in Premix Bag 1 BAG IV SCH ×4 (04:03→21:09)
[2022-03-15] MEDS: Acetaminophen 500 MG Tab PO SCH ×3 (04:03→19:28)
[2022-03-15] MEDS: Enoxaparin 40 MG/0.4 ML Syringe SUBCUT SCH (09:09)
[2022-03-15] MEDS: Tamsulosin 0.4 MG Cap.ER PO SCH (09:09)
[2022-03-15] MEDS ORDERED: Potassium Chloride 20 MEQ Tab.ER PO ONE (12:00)
[2022-03-16] MEDS: oxyCODONE 5 MG Tab PO PRN ×3 (00:10→20:16)
[2022-03-16] MEDS ORDERED: Iopamidol 612 MG/ML 100 ML Bottle IV STA (04:47)
[2022-03-16] MEDS ORDERED: Sodium Chloride 0.9% 50 ML IV STA (04:48)
[2022-03-16] MEDS: Acetaminophen 500 MG Tab PO SCH ×3 (05:21→19:12)
[2022-03-16] MEDS: Piperacillin/Tazobactam/Dext 3.375 GM in Premix Bag 1 BAG IV SCH ×4 (05:23→21:08)
[2022-03-16] MEDS: Tamsulosin 0.4 MG Cap.ER PO SCH (08:57)
[2022-03-16] MEDS ORDERED: Meropenem 500 MG SDV ONE (09:45)
[2022-03-16] MEDS ORDERED: Bupivacaine 0.5%/EPINEPHrine 1:200,000 50 ML MDV ONE (09:45)
[2022-03-16] MEDS ORDERED: fentaNYL 250 MCG/5 ML SDV ONE (10:02)
[2022-03-16] MEDS ORDERED: Dexamethasone 4 MG/ML SDV ONE (10:03)
[2022-03-16] MEDS ORDERED: Succinylcholine 200 MG/10 ML MDV ONE (10:03)
[2022-03-16] MEDS ORDERED: Glycopyrrolate 0.2 MG/ML 5 ML MDV ONE (10:03)
[2022-03-16] MEDS ORDERED: Propofol 200 MG/20 ML SDV ONE (10:03)
[2022-03-16] MEDS ORDERED: Rocuronium 50 MG/5 ML Vial ONE (10:03)
[2022-03-16] MEDS ORDERED: Neostigmine Methylsulfate 1 MG/ML 5 ML Syringe ONE (10:03)
[2022-03-16] MEDS ORDERED: Ondansetron 4 MG/2 ML SDV ONE (10:03)
[2022-03-16] MEDS ORDERED: Sugammadex Sodium 200 MG/2 ML VIAL ONE (11:39)
[2022-03-16] MEDS: Lactated Ringers 1,000 ML IV SCH (15:15)
[2022-03-16] MEDS: HYDROmorphone 0.5 MG/0.5 ML Syringe IVPUSH PRN (23:29)
[2022-03-17] MEDS: Lactated Ringers 1,000 ML IV SCH (00:18)
[2022-03-17] MEDS: oxyCODONE 5 MG Tab PO PRN ×3 (00:21→17:39)
[2022-03-17] MEDS: Piperacillin/Tazobactam/Dext 3.375 GM in Premix Bag 1 BAG IV SCH ×4 (03:46→21:46)
[2022-03-17] MEDS: Acetaminophen 500 MG Tab PO SCH ×3 (03:46→19:53)
[2022-03-17] MEDS: Ketorolac 30 MG/ML SDV IVPUSH SCH ×3 (08:49→19:53)
[2022-03-17] MEDS: Tamsulosin 0.4 MG Cap.ER PO SCH (09:53)
[2022-03-17] MEDS: Enoxaparin 40 MG/0.4 ML Syringe SUBCUT SCH (09:55)
[2022-03-18] MEDS: oxyCODONE 5 MG Tab PO PRN ×3 (00:23→14:50)
[2022-03-18] MEDS: Ketorolac 30 MG/ML SDV IVPUSH SCH (01:59)
[2022-03-18] MEDS: Piperacillin/Tazobactam/Dext 3.375 GM in Premix Bag 1 BAG IV SCH ×3 (03:32→16:50)
[2022-03-18] MEDS: Acetaminophen 500 MG Tab PO SCH ×2 (03:43→11:03)
[2022-03-18] MEDS ORDERED: Potassium Chloride 10% 20 MEQ/15 ML Soln 15 ML UD Cup PO ONE (06:55)
[2022-03-18] MEDS ORDERED: Potassium Chloride 20 MEQ Tab.ER PO ONE (07:30)
[2022-03-18] MEDS: Tamsulosin 0.4 MG Cap.ER PO SCH (08:08)
[2022-03-18] MEDS: Enoxaparin 40 MG/0.4 ML Syringe SUBCUT SCH (08:09)
[2022-03-18 11:09] VITALS: BP 116/74; PULSE 68
[2022-03-18] MEDS: Ondansetron 4 MG/2 ML SDV IVPUSH PRN (14:50)
== END 2022-03-18 17:12 | disposition home or self-care (01) | DRG 342 ==
LOC: JP.ED 12:28 → JP.SDS 14:01 → JP.MS 15:00 → OBSVTOIN 03-15 08:55
PROVIDERS: ADMIT Student in an Organized Health Care Education/Training Program; ATTEND Student in an Organized Health Care Education/Training Program
PROC: 0DTJ4ZZ Resection of Appendix, Percutaneous Endoscopic Approach (ICD-10-PCS; principal; 2022-03-16)
PROC: 0W9F40Z Drainage of Abdominal Wall with Drainage Device, Percutaneous Endoscopic Approach (ICD-10-PCS; 2022-03-16)
DX: K35.30 Acute appendicitis with localized peritonitis, without perforation or gangrene (principal); K91.870 Postprocedural hematoma of a digestive system organ or structure following a digestive system procedure; Z20.822 Contact with and (suspected) exposure to COVID-19; K21.9 Gastro-esophageal reflux disease without esophagitis; E87.6 Hypokalemia; F32.A Depression, unspecified; Z90.49 Acquired absence of other specified parts of digestive tract; Z88.8 Allergy status to other drugs, medicaments and biological substances; Z87.891 Personal history of nicotine dependence; Y83.8 Other surgical procedures as the cause of abnormal reaction of the patient, or of later complication, without mention of misadventure at the time of the procedure
CPT/HCPCS: 36415; 51701; 51702; 51798; 74177; 74177-26; 76857; 76857-26; 80048; 83735; 84100; 84145; 85025; 85027; 86140; 87070; 87075; 87205; A9270-GY; J0330; J1100; J1170; J1650; J1885; J2185; J2405; J2543; J2704; J2710; J3010; J3490; J7030; J7120; Q9967; U0002